=== PATIENT | male | born 1955 | race Caucasian/White ===

== ENCOUNTER 2017-10-04 10:30 | Observation (INO) | payer OTHER, MEDICAID ==
[~2017-10-04] VITALS: Ht 165.1 cm; Wt 54.5 kg
[~2017-10-04 10:30] MED LIST: ALB0.5UD IH; BUDE0.5A11 NEB; FLO0.4C PO; POTA20PA3; PRED10TA PO
[2017-10-04 11:30] LABS: BASOPHILS % (AUTO) 0.1 % (0-1); EOSINOPHILS # (AUTO) 0.4 X10'3 (0-0.9); EOSINOPHILS % (AUTO) 1.7 % (0-6); HEMATOCRIT 39.7 % (42.0-52.0); HEMOGLOBIN 12.9 g/dl (14.0-17.9); LYMPHOCYTES # (AUTO) 3.6 X10'3 (1.1-4.8); LYMPHOCYTES % (AUTO) 16.2 % (21-51); MEAN CORPUSCULAR HEMOGLOBIN 28.9 PG (27.0-31.0); MEAN CORPUSCULAR HGB CONC 32.6 % (33.0-36.5); MEAN CORPUSCULAR VOLUME 88.9 FL (78-98); MEAN PLATELET VOLUME 7.2 FL (7.4-10.4); MONOCYTES % (AUTO) 9.3 % (2-12); NEUTROPHILS % (AUTO) 72.7 % (42-75); PLATELET COUNT 467 X10'3 (140-440); RED BLOOD COUNT 4.46 X10'6 (4.70-6.10); RED CELL DISTRIBUTION WIDTH 17.2 % (11.5-14.5)
[2017-10-04 11:46] LABS: CLARITY,URINE Clear (Clear); COLOR,URINE Yellow (Yellow); GLUCOSE, URINE Negative (Neg); KETONES,URINE Negative (Neg); LEUKOCYTE ESTERASE ,URINE Negative (Neg); NITRITES, URINE Negative (Neg); OCCULT BLOOD,URINE Negative (Neg); PROTEIN,URINE Negative (Neg); UROBILINOGEN,URINE 0.2 E.U/dL (0.2-1.0)
[2017-10-04 11:52] LABS: ALANINE AMINOTRANSFERASE 56 U/L (12-78); ALBUMIN 2.6 G/DL (3.4-5.0); ALBUMIN/GLOBULIN RATIO 0.8 (1.1-1.5); ALKALINE PHOSPHATASE 61 IU/L (46-116); ANION GAP 4 (8-16); ASPARTATE AMINO TRANSFERASE 18 U/L (10-37); BILIRUBIN,TOTAL 0.3 MG/DL (0.1-1.0); BLOOD UREA NITROGEN 24 MG/DL (7-18); BUN/CREATININE RATIO 34.3 (5.4-32.0); CHLORIDE 105 MMOL/L (99-107); GLUCOSE 94 MG/DL (70-104); POTASSIUM 4.2 MMOL/L (3.5-5.1); SODIUM 142 MMOL/L (135-145); TOTAL CARBON DIOXIDE 32.9 MMOL/L (24-32); TOTAL PROTEIN 5.7 G/DL (6.4-8.2); eGFR > 90 ML/MIN
[2017-10-04 11:58] LABS: PLATELET ESTIMATE INCREASED; TOTAL CELLS COUNTED 100
[2017-10-04 11:59] LABS: TARGET CELLS FEW
[2017-10-04 12:02] LABS: UA COLLECTION TYPE URINAL
[2017-10-04] MEDS ORDERED: piperacillin/tazo 3.375gm/50ml 50 ML IV ONE (12:25)
[2017-10-04] MEDS ORDERED: vancomycin/NS 1 GM ADD-VANTAGE 250 ML IV ONE (12:25)
[2017-10-04 12:39] LABS: PARTIAL THROMBOPLASTIN TIME 24 SECONDS (22-32); PROTHROMBIN TIME 9.9 SECONDS (9.0-12.0)
[2017-10-04 13:01] LABS: MAGNESIUM 1.7 MG/DL (1.5-2.4)
[2017-10-04] MEDS ORDERED: magnesium hydroxide 30ml (MOM) UD suspension PO PRN (13:25)
[2017-10-04] MEDS ORDERED: ondansetron/PF 4mg/2ml inj IV PRN (13:25)
[2017-10-04] MEDS ORDERED: acetaminophen 325mg tablet PO PRN (13:25)
[2017-10-04] MEDS ORDERED: mag hydrox/Alum hydrox/simeth 30ml oral suspension PO PRN (13:25)
[2017-10-04] MEDS: normal saline 1000ml 1,000 ML IV SCH (15:19)
[2017-10-04 15:21] VITALS: BP 107/60
[2017-10-04] MEDS ORDERED: PRED20TA PO (16:24)
[2017-10-04] MEDS ORDERED: albuterol 2.5 MG/3 ML nebule NEB PRN (17:20)
[2017-10-04] MEDS: levoFLOXACIN-Levaquin 500mg/D5 100 ML IV SCH (19:38)
[2017-10-04] MEDS: heparin, porcine 5000 units/ml vial SQ SCH (19:38)
[2017-10-04 20:00] VITALS: BP_SYST 103; BP_SYST 98; BP_SYST 99; BP_DIAS 55; BP_DIAS 57; BP_DIAS 62
[2017-10-05] VITALS: BP 101/52
[2017-10-05] MEDS: normal saline 1000ml 1,000 ML IV SCH ×2 (00:25→09:15)
[2017-10-05 06:12] LABS: HEMATOCRIT 36.7 % (42.0-52.0); HEMOGLOBIN 11.7 g/dl (14.0-17.9); MEAN CORPUSCULAR HEMOGLOBIN 28.5 PG (27.0-31.0); MEAN PLATELET VOLUME 7.3 FL (7.4-10.4); PLATELET COUNT 474 X10'3 (140-440); RED BLOOD COUNT 4.12 X10'6 (4.70-6.10); RED CELL DISTRIBUTION WIDTH 16.7 % (11.5-14.5); WHITE BLOOD COUNT 14.6 X10'3 (4.5-11.0)
[2017-10-05 06:24] LABS: ALBUMIN 2.4 G/DL (3.4-5.0); ANION GAP 5 (8-16); BLOOD UREA NITROGEN 21 MG/DL (7-18); CALCIUM 8.1 MG/DL (8.5-10.1); CHLORIDE 106 MMOL/L (99-107); GLUCOSE 94 MG/DL (70-104); POTASSIUM 4.1 MMOL/L (3.5-5.1); SODIUM 144 MMOL/L (135-145); TOTAL CARBON DIOXIDE 32.6 MMOL/L (24-32); eGFR > 90 ML/MIN
[2017-10-05 07:09] VITALS: BP 107/69
[2017-10-05 07:10] LABS: ANISOCYTOSIS 1+; HYPOCHROMASIA 1+; PLATELET ESTIMATE INCREASED; POIKILOCYTOSIS 1+; TOTAL CELLS COUNTED 100
[2017-10-05 07:11] LABS: POLYCHROMASIA FEW; TARGET CELLS FEW
[2017-10-05] MEDS ORDERED: tamsulosin 0.4mg capsule PO SCH (08:00)
[2017-10-05] MEDS: levoFLOXACIN-Levaquin 500mg/D5 100 ML IV SCH (09:06)
[2017-10-05] MEDS: heparin, porcine 5000 units/ml vial SQ SCH (09:07)
[2017-10-05 11:14] VITALS: BP 99/48
== END 2017-10-05 13:20 | disposition home or self-care (01) ==
LOC: ER 10:30 → ED HOLD 13:25 → EDBEDREQ 14:38 → MED 3N 15:12
PROVIDERS: ADMIT Family Medicine; ATTEND Family Medicine
DX: I95.9 Hypotension, unspecified (principal); R42 Dizziness and giddiness; J44.9 Chronic obstructive pulmonary disease, unspecified; D72.828 Other elevated white blood cell count; E11.9 Type 2 diabetes mellitus without complications; F43.10 Post-traumatic stress disorder, unspecified; I11.0 Hypertensive heart disease with heart failure; I50.9 Heart failure, unspecified
CPT/HCPCS: 36415; 71046; 80048; 80053; 81003; 83605; 83735; 83880; 84145; 85025; 85610; 85730; 87040; 87070; 93005; 96361; 96365; 96366; 96367; 96372; 99285; G0378; J1644; J1956; J2543; J3370; J7030

== ENCOUNTER 2019-09-26 15:37 | Inpatient (IN) | payer MEDICAID, OTHER ==
[~2019-09-26] VITALS: Ht 172.7 cm; Wt 67.3 kg
[~2019-09-26 15:37] MED LIST changes: +ALBU8.5H8 INH; +BUDE10.2 INH; +DIGO250T PO; +DILT240C96 PO; -FLO0.4C PO; -POTA20PA3; +POTA20PA40 PO; -PRED10TA PO; +rocuronium bromide 100mg/10ml (10mg/ml) injection IV ONE
--- NOTE | 2019-09-26 15:54 | NUR ---
Spoke LYLY Pressley regarding pt meeting SIRS criteria. Per MEDICAL PARASITOLOGIST, no fluids beyond what EMS administered at this time secondary to CHF history.
[2019-09-26] MEDS ORDERED: piperacillin/tazo 3.375gm/50ml 50 ML IV ONE (15:55)
[2019-09-26] MEDS ORDERED: morphine 4 MG/ML inj SYRINge IV ONE (15:55)
[2019-09-26] MEDS ORDERED: aspirin 81mg tab.chew PO ONE (15:55)
[2019-09-26] MEDS ORDERED: normal saline 1000ML IV soln IVB ONE (16:05)
[2019-09-26] MEDS ORDERED: methylPREDNISolone sod succ 125mg/2ml vial IV ONE (16:05)
[2019-09-26 16:20] LABS: BASOPHILS # (AUTO) 0.1 X10'3 (0-0.2); BASOPHILS % (AUTO) 0.4 % (0-1); EOSINOPHILS # (AUTO) 0.1 X10'3 (0-0.9); EOSINOPHILS % (AUTO) 0.4 % (0-6); HEMATOCRIT 38.3 % (42.0-52.0); HEMOGLOBIN 12.4 g/dl (14.0-17.9); LYMPHOCYTES # (AUTO) 0.4 X10'3 (1.1-4.8); LYMPHOCYTES % (AUTO) 2.5 % (21-51); MEAN CORPUSCULAR HEMOGLOBIN 28.8 PG (27.0-31.0); MEAN CORPUSCULAR HGB CONC 32.4 g/dL (33.0-36.5); MEAN CORPUSCULAR VOLUME 89.1 FL (78-98); MONOCYTES # (AUTO) 1.3 X10'3 (0-0.9); MONOCYTES % (AUTO) 8.6 % (2-12); NEUTROPHILS # (AUTO) 13.6 X10'3 (1.8-7.7); NEUTROPHILS % (AUTO) 88.1 % (42-75); PLATELET COUNT 370 X10'3 (140-440); RED CELL DISTRIBUTION WIDTH 15.5 % (11.5-14.5); WHITE BLOOD COUNT 15.5 X10'3 (4.5-11.0)
[2019-09-26 16:36] LABS: ALANINE AMINOTRANSFERASE 23 U/L (12-78); ALBUMIN 3.5 G/DL (3.4-5.0); ALBUMIN/GLOBULIN RATIO 0.9 (1.1-1.5); ALKALINE PHOSPHATASE 82 IU/L (46-116); ANION GAP 3 (8-16); ASPARTATE AMINO TRANSFERASE 18 U/L (10-37); BILIRUBIN,TOTAL 0.2 MG/DL (0.1-1.0); BLOOD UREA NITROGEN 11 MG/DL (7-18); BUN/CREATININE RATIO 17.2 (5.4-32.0); CALCIUM 8.4 MG/DL (8.5-10.1); CHLORIDE 99 MMOL/L (99-107); CREATININE 0.64 MG/DL (0.60-1.10); GLUCOSE 113 MG/DL (70-104); POTASSIUM 4.1 MMOL/L (3.5-5.1); SODIUM 138 MMOL/L (135-145); TOTAL CARBON DIOXIDE 36.5 MMOL/L (24-32); TOTAL PROTEIN 7.4 G/DL (6.4-8.2); eGFR > 90 ML/MIN
[2019-09-26 16:40] LABS: PARTIAL THROMBOPLASTIN TIME 31 SECONDS (22-32)
[2019-09-26 16:45] LABS: ABG BASE EXCESS 6.2 mmol/L (-2.0-3.0); ABG HCO3 35.1 mmol/L (22.0-26.0); ABG OXYGEN SATURATION 92.9 % (95-98); ABG PCO2 (T) 74.4 mmHg (35.0-45.0); ABG PH (T) 7.292 (7.350-7.450); ABG PO2 (T) 68.1 mmHg (83-108); ALLEN'S TEST POSITIVE; FCOHb 0.8 % (0.5-1.5); FMetHb 0.1 % (0.3-1.12); FO2Hb 92.1 % (94-100); TOTAL HEMOGLOBIN 12.8 G/dl (14.0-17.9)
[2019-09-26 16:46] LABS: ETHANOL < 0.010 GM/DL (0.0-0.010); MAGNESIUM 1.7 MG/DL (1.5-2.4)
[2019-09-26 16:51] LABS: D-DIMER 0.56 MG/L FEU (0-0.50)
[2019-09-26] MEDS ORDERED: oseltamivir phos 75mg capsule PO ONE (18:00)
[2019-09-26 18:25] LABS: ABG BASE EXCESS 7.2 mmol/L (-2.0-3.0); ABG HCO3 36.7 mmol/L (22.0-26.0); ABG OXYGEN SATURATION 95.1 % (95-98); ABG PCO2 (T) 80.1 mmHg (35.0-45.0); ABG PO2 (T) 78.7 mmHg (83-108); ALLEN'S TEST POSITIVE; FCOHb 0.9 % (0.5-1.5); FMetHb 0.2 % (0.3-1.12); FO2Hb 94.1 % (94-100); PATIENT TEMPERATURE 37.3
[2019-09-26] MEDS ORDERED: SILD100T PO (18:46)
[2019-09-26] MEDS ORDERED: TRAZ-251 PO (18:47)
[2019-09-26] MEDS ORDERED: LISI-600 PO (18:48)
[2019-09-26] MEDS ORDERED: METO-384 PO (18:50)
[2019-09-26] MEDS ORDERED: FURO-150 PO (18:51)
[2019-09-26] MEDS ORDERED: IBUP-1985 PO (18:53)
[2019-09-26] MEDS ORDERED: POTA10CA44 PO (18:54)
[2019-09-26] MEDS ORDERED: FLO0.4C PO (18:57)
[2019-09-26 19:16] LABS: ABG BASE EXCESS 6.6 mmol/L (-2.0-3.0); ABG HCO3 35.1 mmol/L (22.0-26.0); ABG OXYGEN SATURATION 92.2 % (95-98); ABG PCO2 (T) 71.2 mmHg (35.0-45.0); ABG PH (T) 7.312 (7.350-7.450); ABG PO2 (T) 65.5 mmHg (83-108); ALLEN'S TEST POSITIVE; FCOHb 0.9 % (0.5-1.5); FMetHb 0.2 % (0.3-1.12); FO2Hb 91.2 % (94-100); PATIENT TEMPERATURE 37.3; TOTAL HEMOGLOBIN 13.1 G/dl (14.0-17.9)
--- NOTE | 2019-09-26 19:21 | NUR ---
MED REC DONE ACCORDING TO MEDICATIONS BROUGHT IN BY PATIENT. NO EXTERNAL MED HISTORY [facility]. PT IS A RELUCTANT HISTORIAN.
[2019-09-26] MEDS ORDERED: iohexol 350MG/ML 100ml bottle IV ONE (19:32)
--- NOTE | 2019-09-26 20:06 | NUR ---
PT OUT TO CT ON 4L NC PER RESPIRATORY. PT RETURNED TO ER ROOM W/ O2 SAT AT 97% ON 4L. PT O2 DECREASED TO 2L AND WILL REMAIN ON NC FOR NOW. PT STATES HE FEELS HE IS BREATHING "FINE". WILL CONTINUE TO MONITOR.
[2019-09-26 22:13] LABS: URINE AMPHETAMINE SCREEN POSITIVE (Neg); URINE BARBITUATE SCREEN NEGATIVE (Neg); URINE BENZODIAZEPINES SCREEN NEGATIVE (Neg); URINE CANNABINOID SCREEN NEGATIVE (Neg); URINE COCAINE SCREEN NEGATIVE (Neg); URINE METHADONE SCREEN NEGATIVE (Neg); URINE OPIATE SCREEN POSITIVE (Neg); URINE PHENCYCLIDINE SCREEN NEGATIVE (Neg)
[2019-09-26] MEDS ORDERED: LORazepam 2 mg/ml vial IV ONE (22:15)
[2019-09-26] MEDS ORDERED: potassium Cl 20 mEq SR tablet PO PRN ×2 (22:30)
[2019-09-26] MEDS ORDERED: magnesium 2GM in 50ml NS 50 ML IV PRN (22:30)
[2019-09-26] MEDS ORDERED: acetaminophen 325mg tablet PO PRN (22:30)
[2019-09-26] MEDS ORDERED: potassium CL 10mEq/100ml bag 100 ML IV PRN ×2 (22:30)
[2019-09-26] MEDS ORDERED: ipratropium/albuterol 3ml nebule NEB PRN (22:30)
[2019-09-26] MEDS ORDERED: mag hydrox/Alum hydrox/simeth 30ml oral suspension PO PRN (22:30)
[2019-09-26] MEDS ORDERED: magnesium hydroxide 30ml (MOM) UD suspension PO PRN (22:30)
[2019-09-26] MEDS ORDERED: magnesium 4gm in 100ml NS 100 ML IV PRN (22:30)
[2019-09-26] MEDS ORDERED: ondansetron/PF 4mg/2ml inj IV PRN (22:30)
[2019-09-26] MEDS ORDERED: traZODone 50mg tablet PO PRN (22:40)
--- NOTE | 2019-09-26 22:42 | NUR ---
PT GIVEN ATIVAN FOR AGITATION R/T PULLING HIS MASK OFF. PT REFUSED MASK AND WAS GIVEN NC UNTIL ATIVAN TOOK EFFECT. PT PULLED NC OFF AND BECAME SOLMNENT WHILE SITTING ON TH EDGE OF BED. PT ASSISTED BACK INTO BED AND MASK PLACED ON FACE. PT PLACED IN GOWN.
[2019-09-26 23:40] VITALS: BP 157/68
--- NOTE | 2019-09-26 23:40 | NUR ---
pt arrived to PCU unit via [facility] from ER, pt transferred from [facility] to hospital bed by the slide board, pt is lethargic at this time, CO2 retainer, pt on bipap FiO2 30 oxygen saturation is 93%, will continue to monitor pt
[2019-09-27] VITALS (26 sets, daily range): BP systolic 82–174; BP diastolic 42–111
--- NOTE | 2019-09-27 00:35 | NUR ---
PAGER ID: [phone] MESSAGE: Gilberto Carter 64M admitted for acute/chronic respiratory failure pt is very agitated and anxious at this time, pulling at his Bipap, i was wondering if i could get an ativan order please. Thank you Riya PORTILLO
[2019-09-27] MEDS ORDERED: LORazepam 2 mg/ml vial IV PRN (00:40)
[2019-09-27] MEDS: normal saline 1000ml 1,000 ML IV SCH ×3 (01:00→17:07)
[2019-09-27] MEDS: digoxin 250mcg (0.25mg) tablet PO SCH ×2 (01:00→07:51)
[2019-09-27] MEDS: heparin, porcine 5000 units/ml vial SQ SCH ×3 (01:02→15:26)
[2019-09-27] MEDS: piperacillin/tazo 3.375gm/50ml 50 ML IV SCH ×3 (01:03→15:26)
--- NOTE | 2019-09-27 02:00 | NUR ---
Paged Dr. Hickey due to concerns of patient's increasing respiratory effort and constantly decreasing O2 sats while still on bipap. ABG obtained and critical results phoned to Dr. Hickey. Dr. Hickey stated he would be by to eval the patient and consult with Aminah SALMERON STORE LOSS PREVENTION MANAGER. Called ICU lithopone charger to notify her of need for transfer and she agreed to come to bedside due to concerns of patient's HR dropping from 100s suddenly to the low 70s. While preparing patient for transfer to ICU room 2009 TAYLER Marin came to bedside to eval the patient and place orders. New 18g IV placed for additional access prior to transfer in patient's L FA. Patient transferred by ICU lithopone charger & primary RN Riya with RT. Patient remained on bipap and transferred on monitor.
[2019-09-27 02:11] LABS: ABG BASE EXCESS 10.9 mmol/L (-2.0-3.0); ABG HCO3 44.6 mmol/L (22.0-26.0); ABG OXYGEN SATURATION 97.4 % (95-98); ABG PCO2 (T) 128.1 mmHg (35.0-45.0); ABG PH (T) 7.159 (7.350-7.450); ABG PO2 (T) 106.4 mmHg (83-108); ALLEN'S TEST POSITIVE; FCOHb 0.5 % (0.5-1.5); FMetHb 0.2 % (0.3-1.12); FO2Hb 96.7 % (94-100); PATIENT TEMPERATURE 36.8; TOTAL HEMOGLOBIN 13.2 G/dl (14.0-17.9)
[2019-09-27] MEDS ORDERED: ipratropium/albuterol 3ml nebule NEB SCH (02:30)
[2019-09-27] MEDS ORDERED: albuterol 2.5 MG/3 ML nebule NEB PRN (02:30)
[2019-09-27] MEDS ORDERED: methylPREDNISolone sod succ 125mg/2ml vial IV ONE (02:30)
--- NOTE | 2019-09-27 02:30 | NUR ---
pt transferred to ICU, pt lethargic at this time and transported on Bipap, beside report given and all problems discussed with Hannah PORTILLO
[2019-09-27] MEDS ORDERED: fentaNYL/PF 50MCG/1 ML 2ML syringe IV PRN (02:35)
[2019-09-27] MEDS ORDERED: FENTANYL-0.9 % NACL/PF 100 ML IV PRN (02:35)
[2019-09-27] MEDS ORDERED: midazolam 100mg in NS 100ml 100 ML IV PRN (02:35)
[2019-09-27] MEDS: ipratropium/albuterol 3ml nebule NEB SCH ×6 (02:55→23:24)
[2019-09-27] MEDS ORDERED: rocuronium 10mg/ml inj IV ONE (03:00)
[2019-09-27] MEDS ORDERED: etomidate 2mg/ml inj. IV ONE (03:00)
[2019-09-27 03:32] LABS: BASOPHILS % (AUTO) 0.3 % (0-1); EOSINOPHILS % (AUTO) 0 % (0-6); HEMATOCRIT 37.4 % (42.0-52.0); LYMPHOCYTES # (AUTO) 0.1 X10'3 (1.1-4.8); LYMPHOCYTES % (AUTO) 1.1 % (21-51); MEAN CORPUSCULAR HEMOGLOBIN 29.1 PG (27.0-31.0); MEAN CORPUSCULAR HGB CONC 32.2 g/dL (33.0-36.5); MEAN CORPUSCULAR VOLUME 90.4 FL (78-98); MEAN PLATELET VOLUME 8.2 FL (7.4-10.4); MONOCYTES # (AUTO) 0.4 X10'3 (0-0.9); NEUTROPHILS # (AUTO) 12.9 X10'3 (1.8-7.7); NEUTROPHILS % (AUTO) 95.6 % (42-75); PLATELET COUNT 352 X10'3 (140-440); RED BLOOD COUNT 4.14 X10'6 (4.70-6.10); RED CELL DISTRIBUTION WIDTH 15.8 % (11.5-14.5); WHITE BLOOD COUNT 13.5 X10'3 (4.5-11.0)
[2019-09-27 03:41] LABS: ABG BASE EXCESS 4.5 mmol/L (-2.0-3.0); ABG OXYGEN SATURATION 98.6 % (95-98); ABG PCO2 (T) 68.9 mmHg (35.0-45.0); ABG PH (T) 7.297 (7.350-7.450); ABG PO2 (T) 116.7 mmHg (83-108); ALLEN'S TEST POSITIVE; FCOHb 0.6 % (0.5-1.5); FMetHb 0.1 % (0.3-1.12); FO2Hb 97.9 % (94-100); PATIENT TEMPERATURE 36.6; PEEP 5 cm H2O; RESPIRATORY RATE 18 b/min; TIDAL VOLUME 400 mL; TOTAL HEMOGLOBIN 12.5 G/dl (14.0-17.9)
[2019-09-27 05:06] LABS: ALANINE AMINOTRANSFERASE 21 U/L (12-78); ALBUMIN 3.1 G/DL (3.4-5.0); ALBUMIN/GLOBULIN RATIO 0.8 (1.1-1.5); ALKALINE PHOSPHATASE 75 IU/L (46-116); ANION GAP 5 (8-16); ASPARTATE AMINO TRANSFERASE 22 U/L (10-37); BILIRUBIN,TOTAL 0.4 MG/DL (0.1-1.0); BLOOD UREA NITROGEN 11 MG/DL (7-18); BUN/CREATININE RATIO 18.3 (5.4-32.0); CALCIUM 7.7 MG/DL (8.5-10.1); CHLORIDE 99 MMOL/L (99-107); CHOL/HDL RATIO 1.9 (0.00-4.99); CHOLESTEROL 181 MG/DL (0-200); GLUCOSE 203 MG/DL (70-104); HDL CHOLESTEROL 95 MG/DL (35-60); LDL CHOLESTEROL 84 MG/DL (50-100); MAGNESIUM 1.6 MG/DL (1.5-2.4); POTASSIUM 4.1 MMOL/L (3.5-5.1); SODIUM 137 MMOL/L (135-145); TOTAL CARBON DIOXIDE 32.9 MMOL/L (24-32); TOTAL PROTEIN 6.9 G/DL (6.4-8.2); TRIGLYCERIDES 20 MG/DL (20-135); eGFR > 90 ML/MIN
[2019-09-27] MEDS: oseltamivir phos 75mg capsule PO SCH ×2 (07:50→19:37)
[2019-09-27] MEDS: methylPREDNISolone sod succ 125mg/2ml vial IV SCH ×3 (07:51→19:37)
[2019-09-27] MEDS: tamsulosin 0.4mg capsule PO SCH (08:00)
[2019-09-27] MEDS: metoprolol succinate 25mg (24-HOUR) SR. Tablet PO SCH (08:00)
[2019-09-27] MEDS ORDERED: methylPREDNISolone sod succ 125mg/2ml vial IV SCH (08:00)
[2019-09-27] MEDS: lisinopril 2.5mg tablet PO SCH (08:00)
[2019-09-27] MEDS ORDERED: dexmedetomidin/NS 400mcg/100ml 100 ML IV SCH (10:10)
[2019-09-27 12:09] LABS: HEMOGLOBIN A1C 6.3 % (4.5-6.2)
--- NOTE | 2019-09-27 12:12 | NUR ---
Initial: Pt intubated admit w/ respiratory failure, COPD Exacerbation, PNA secondary to flu and possible aspiration per MD. Pt hx daily meth use and T2DM last A1C 2018 below 7. MIGUELANGEL d/w RN regarding new A1C this admit. TF recs below in case prolonged intubation. No BM yet. Will continue to monitor. Rec: 1. IF OGTF; Vital AF at 70ml/hr goal 2. IF TF; water flush 100ml Q6 3. IF TF; PALB Q /; daily wts 4. advance diet per BI ANALYST recs to carb controlled/heart healthy 5. DM ed IF new A1C at least 7.0; pending new A1C Addendum: 09/27/19 at [address] Amended: Links added.
--- NOTE | 2019-09-27 12:18 | NUR ---
PT TRIED TO EXTUBATE HIMSELF... DID NOT PULL ET TUBE OUT BUT DISCONNECTED VENT FROM ET TUBE... DR. MARTINEZ GAVE VERBAL ORDER TO EXTUBATE. B Addendum: 09/27/19 at 1219 by Kacy Higgins RT Amended: Links added.
--- NOTE | 2019-09-27 18:17 | NUR ---
Problems reprioritized. Patient report given to Hannah, questions answered & plan of care reviewed with .
[2019-09-27] MEDS: lactobacillus rhamnosus 10,000 MMU CELLS/CAPSULE PO SCH (19:37)
[2019-09-28] VITALS (15 sets, daily range): BP systolic 105–164; BP diastolic 53–76
[2019-09-28] MEDS: piperacillin/tazo 3.375gm/50ml 50 ML IV SCH ×3 (00:20→15:49)
[2019-09-28] MEDS: methylPREDNISolone sod succ 125mg/2ml vial IV SCH (00:20)
[2019-09-28] MEDS: heparin, porcine 5000 units/ml vial SQ SCH ×3 (00:20→15:19)
[2019-09-28] MEDS: ipratropium/albuterol 3ml nebule NEB SCH ×7 (02:31→23:44)
[2019-09-28] MEDS: normal saline 1000ml 1,000 ML IV SCH (04:51)
[2019-09-28 05:31] LABS: BASOPHILS % (AUTO) 0 % (0-1); EOSINOPHILS % (AUTO) 0 % (0-6); HEMATOCRIT 36.6 % (42.0-52.0); HEMOGLOBIN 11.6 g/dl (14.0-17.9); LYMPHOCYTES # (AUTO) 0.3 X10'3 (1.1-4.8); LYMPHOCYTES % (AUTO) 2.2 % (21-51); MEAN CORPUSCULAR HEMOGLOBIN 28.8 PG (27.0-31.0); MEAN CORPUSCULAR HGB CONC 31.8 g/dL (33.0-36.5); MEAN CORPUSCULAR VOLUME 90.6 FL (78-98); MEAN PLATELET VOLUME 7.4 FL (7.4-10.4); MONOCYTES # (AUTO) 0.8 X10'3 (0-0.9); MONOCYTES % (AUTO) 5.5 % (2-12); NEUTROPHILS # (AUTO) 12.9 X10'3 (1.8-7.7); NEUTROPHILS % (AUTO) 92.3 % (42-75); PLATELET COUNT 371 X10'3 (140-440); RED BLOOD COUNT 4.03 X10'6 (4.70-6.10); RED CELL DISTRIBUTION WIDTH 15.6 % (11.5-14.5)
[2019-09-28 05:43] LABS: ALANINE AMINOTRANSFERASE 25 U/L (12-78); ALBUMIN 2.7 G/DL (3.4-5.0); ALBUMIN/GLOBULIN RATIO 0.8 (1.1-1.5); ALKALINE PHOSPHATASE 63 IU/L (46-116); ASPARTATE AMINO TRANSFERASE 29 U/L (10-37); BILIRUBIN,TOTAL 0.2 MG/DL (0.1-1.0); BLOOD UREA NITROGEN 13 MG/DL (7-18); BUN/CREATININE RATIO 15.5 (5.4-32.0); CREATININE 0.84 MG/DL (0.60-1.10); GLUCOSE 133 MG/DL (70-104); POTASSIUM 4.3 MMOL/L (3.5-5.1); SODIUM 142 MMOL/L (135-145); TOTAL PROTEIN 6.3 G/DL (6.4-8.2); eGFR > 90 ML/MIN
[2019-09-28 05:54] LABS: ANION GAP 2 (8-16); CHLORIDE 102 MMOL/L (99-107); TOTAL CARBON DIOXIDE 38.3 MMOL/L (24-32)
[2019-09-28] MEDS: mineral oil/petrolatum ophthal oint EACHEYE SCH ×3 (08:00→19:52)
[2019-09-28] MEDS: lisinopril 2.5mg tablet PO SCH (09:27)
[2019-09-28] MEDS: oseltamivir phos 75mg capsule PO SCH ×2 (09:27→20:14)
[2019-09-28] MEDS: metoprolol succinate 25mg (24-HOUR) SR. Tablet PO SCH (09:27)
[2019-09-28] MEDS: lactobacillus rhamnosus 10,000 MMU CELLS/CAPSULE PO SCH ×2 (09:27→20:05)
[2019-09-28] MEDS: digoxin 250mcg (0.25mg) tablet PO SCH (09:28)
--- NOTE | 2019-09-28 12:02 | NUR ---
Patient in room CICU 2009. I have received report from Tigist PORTILLO and had the opportunity to ask questions. Awaiting pts arrival to PCU.
[2019-09-28] MEDS: methylPREDNISolone sod succ/PF 40mg inj. IV SCH ×2 (14:33→20:05)
[2019-09-28] MEDS: tamsulosin 0.4mg capsule PO SCH (15:19)
--- NOTE | 2019-09-28 18:40 | NUR ---
Problems reprioritized. Patient report given, questions answered & plan of care reviewed with Annabelle PORTILLO.
--- NOTE | 2019-09-28 20:00 | NUR ---
VISITOR AT THE BEDSIDE PT TOOK HIS HS MEDS. TEACHING DONE ON PLAN OF CARE AND WHAT HE CAN DO TO HELP HIMSELF AND ON DX DONE.
--- NOTE | 2019-09-28 21:15 | NUR ---
RESTING EYES CLOSED WITHOUT CHANGES.
--- NOTE | 2019-09-28 21:35 | NUR ---
PT RESTING EYES CLOSED WITHOUT CHANGES AT THIS TIME. PT REMAINS ON ISOLATION FOR FLU A.
--- NOTE | 2019-09-28 23:15 | NUR ---
RESTING EYES CLOSED WITHOUT CHANGES
--- NOTE | 2019-09-28 23:18 | NUR ---
PT ON LEFT SIDE APPEARS TO BE RESTING COMFORTABLY.
--- NOTE | 2019-09-29 00:15 | NUR ---
PT AWAKENED AND IV ABX HUNG AND INFUSING. AWOKE BRIEFLY FOR HEPARIN INJECTION THEN DOZED BACK OFF.
[2019-09-29] MEDS: piperacillin/tazo 3.375gm/50ml 50 ML IV SCH ×3 (00:21→16:10)
[2019-09-29] MEDS: heparin, porcine 5000 units/ml vial SQ SCH ×3 (00:22→16:09)
[2019-09-29] MEDS: mineral oil/petrolatum ophthal oint EACHEYE SCH (01:26)
[2019-09-29] MEDS: methylPREDNISolone sod succ/PF 40mg inj. IV SCH ×4 (01:37→19:36)
--- NOTE | 2019-09-29 01:40 | NUR ---
resting eyes closed without changes at this time.
[2019-09-29] MEDS: ipratropium/albuterol 3ml nebule NEB SCH ×4 (02:51→14:26)
[2019-09-29 03:00] VITALS: BP 129/71
--- NOTE | 2019-09-29 03:30 | NUR ---
RESTING EYES CLOSED WITHOUT CHANGES.
[2019-09-29 04:55] LABS: BASOPHILS % (AUTO) 0.1 % (0-1); EOSINOPHILS % (AUTO) 0 % (0-6); HEMATOCRIT 35.4 % (42.0-52.0); HEMOGLOBIN 11.4 g/dl (14.0-17.9); LYMPHOCYTES # (AUTO) 0.3 X10'3 (1.1-4.8); LYMPHOCYTES % (AUTO) 2.6 % (21-51); MEAN CORPUSCULAR HEMOGLOBIN 28.9 PG (27.0-31.0); MEAN CORPUSCULAR HGB CONC 32.2 g/dL (33.0-36.5); MEAN CORPUSCULAR VOLUME 89.9 FL (78-98); MEAN PLATELET VOLUME 7.1 FL (7.4-10.4); MONOCYTES # (AUTO) 0.4 X10'3 (0-0.9); MONOCYTES % (AUTO) 3.6 % (2-12); NEUTROPHILS # (AUTO) 10.9 X10'3 (1.8-7.7); NEUTROPHILS % (AUTO) 93.7 % (42-75); PLATELET COUNT 380 X10'3 (140-440); RED BLOOD COUNT 3.94 X10'6 (4.70-6.10); RED CELL DISTRIBUTION WIDTH 15.2 % (11.5-14.5); WHITE BLOOD COUNT 11.6 X10'3 (4.5-11.0)
[2019-09-29 05:12] LABS: ALANINE AMINOTRANSFERASE 24 U/L (12-78); ALBUMIN 2.5 G/DL (3.4-5.0); ALBUMIN/GLOBULIN RATIO 0.7 (1.1-1.5); ALKALINE PHOSPHATASE 57 IU/L (46-116); ANION GAP 1 (8-16); ASPARTATE AMINO TRANSFERASE 25 U/L (10-37); BILIRUBIN,TOTAL 0.2 MG/DL (0.1-1.0); BLOOD UREA NITROGEN 16 MG/DL (7-18); BUN/CREATININE RATIO 21.3 (5.4-32.0); CALCIUM 8.2 MG/DL (8.5-10.1); CHLORIDE 101 MMOL/L (99-107); CREATININE 0.75 MG/DL (0.60-1.10); GLUCOSE 135 MG/DL (70-104); MAGNESIUM 1.8 MG/DL (1.5-2.4); POTASSIUM 4.2 MMOL/L (3.5-5.1); SODIUM 141 MMOL/L (135-145); TOTAL CARBON DIOXIDE 39.4 MMOL/L (24-32); eGFR > 90 ML/MIN
[2019-09-29 06:00] VITALS: BP 107/60
--- NOTE | 2019-09-29 06:30 | NUR ---
Patient in room PCU 3019. I have received report from LINDSEY PARRY and had the opportunity to ask questions and assume patient care.
--- NOTE | 2019-09-29 06:33 | NUR ---
Problems reprioritized. Patient report given, questions answered & plan of care reviewed with EL PORTILLO. Addendum: 09/29/19 at 0634 by Annabelle Jose RN Amended: Links added.
[2019-09-29] MEDS: lactobacillus rhamnosus 10,000 MMU CELLS/CAPSULE PO SCH ×2 (08:00→19:36)
[2019-09-29] MEDS ORDERED: oseltamivir phos 75mg capsule PO SCH (08:00)
[2019-09-29] MEDS: tamsulosin 0.4mg capsule PO SCH (08:00)
[2019-09-29] MEDS: digoxin 250mcg (0.25mg) tablet PO SCH (08:01)
[2019-09-29] MEDS: oseltamivir phos 75mg capsule PO SCH ×2 (08:01→19:36)
[2019-09-29] MEDS: lisinopril 2.5mg tablet PO SCH (08:02)
[2019-09-29] MEDS: metoprolol succinate 25mg (24-HOUR) SR. Tablet PO SCH (08:02)
[2019-09-29] MEDS ORDERED: FLU VACC QS2019-20 36MOS UP/PF 60 MCG/0.5 ML SYRINGE IMVAC ONE (10:00)
[2019-09-29] MEDS ORDERED: pneumococcal 23-VAL P-sac vacc 25 mcg/0.5ml vial IMVAC ONE (10:00)
--- NOTE | 2019-09-29 10:48 | NUR ---
SPOKE TO SILVESTRE, PHARMACIST REGARDING GIVING THE FLU AND PNA VACCINE WITH POSITIVE INFUENZA A DX. STATES, SHOULD NOT GIVE, I WILL SCHEDULE THEM 4 DAYS OUT".
[2019-09-29 11:00] VITALS: BP 145/73
[2019-09-29 15:00] VITALS: BP 115/75
[2019-09-29] MEDS ORDERED: TAM75C PO (16:40)
--- NOTE | 2019-09-29 18:17 | NUR ---
Problems reprioritized. Patient report given, questions answered & plan of care reviewed with .
[2019-09-29 19:00] VITALS: BP 143/71
--- NOTE | 2019-09-29 20:42 | NUR ---
Patient ride arrived at 194, 2 IVs taken out of left and right FA, tele box removed, patient sent with belongings down with Lita Cárdenas in friends personal vehicle. Discharge instructions reviewed, prescription sent with patient, patient treated with Tamiflu and 2000 meds before he left.
[2019-10-03] MEDS ORDERED: pneumococcal 23-VAL P-sac vacc 25 mcg/0.5ml vial IMVAC ONE (10:50)
[2019-10-03] MEDS ORDERED: FLU VACC QS2019-20 36MOS UP/PF 60 MCG/0.5 ML SYRINGE IMVAC ONE (10:50)
== END 2019-09-29 19:45 | disposition home or self-care (01) | DRG 133 ==
LOC: ER 15:37 → ED HOLD 22:46 → PCU 3S 23:35 → CICU 2S 09-27 02:30 → PCU 3S 09-28 13:23
PROVIDERS: ADMIT Family Medicine; ATTEND Internal Medicine Critical Care Medicine
PROC: 5A09357 Assistance with Respiratory Ventilation, Less than 24 Consecutive Hours, Continuous Positive Airway Pressure (ICD-10-PCS; principal; 2019-09-26)
PROC: B32T1ZZ Computerized Tomography (CT Scan) of Left Pulmonary Artery using Low Osmolar Contrast (ICD-10-PCS; 2019-09-26)
PROC: B3201ZZ Computerized Tomography (CT Scan) of Thoracic Aorta using Low Osmolar Contrast (ICD-10-PCS; 2019-09-26)
PROC: B32S1ZZ Computerized Tomography (CT Scan) of Right Pulmonary Artery using Low Osmolar Contrast (ICD-10-PCS; 2019-09-26)
PROC: 5A1935Z Respiratory Ventilation, Less than 24 Consecutive Hours (ICD-10-PCS; 2019-09-27)
PROC: 0BH17EZ Insertion of Endotracheal Airway into Trachea, Via Natural or Artificial Opening (ICD-10-PCS; 2019-09-27)
DX: J96.22 Acute and chronic respiratory failure with hypercapnia (principal); J10.00 Influenza due to other identified influenza virus with unspecified type of pneumonia; I11.0 Hypertensive heart disease with heart failure; I50.9 Heart failure, unspecified; E87.2 Acidosis; E11.9 Type 2 diabetes mellitus without complications; F15.90 Other stimulant use, unspecified, uncomplicated; J44.0 Chronic obstructive pulmonary disease with (acute) lower respiratory infection; J44.1 Chronic obstructive pulmonary disease with (acute) exacerbation; Z79.899 Other long term (current) drug therapy
CPT/HCPCS: 36415; 36600; 71045; 71275; 80053; 80061; 80305; 80320; 82803; 82948; 83036; 83605; 83735; 83880; 84145; 84443; 84484; 85018; 85025; 85379; 85610; 85730; 87040; 87070; 87081; 87502; 87503; 92508; 92616; 93005; 93306; 94002; 94640; 94660; 94760; 96365; 96375; 97110; 97116; 97161; 97530; 99291; G0378; J1644; J2060; J2250; J2270; J2543; J2920; J2930; J3010; J7030; Q9967

== ENCOUNTER 2019-09-30 05:58 | Emergency (ER) | payer MEDICAID ==
[~2019-09-30] VITALS: Ht 172.7 cm; Wt 63.6 kg
[~2019-09-30 05:58] MED LIST changes: +FLO0.4C PO; +FURO-150 PO; +LISI-600 PO; +METO-384 PO; +POTA10CA44 PO; -POTA20PA40 PO; +SILD100T PO; +TAM75C PO; +TRAZ-251 PO; -rocuronium bromide 100mg/10ml (10mg/ml) injection IV ONE
[2019-09-30 06:42] LABS: BASOPHILS % (AUTO) 0.1 % (0-1); EOSINOPHILS % (AUTO) 0 % (0-6); HEMATOCRIT 36.1 % (42.0-52.0); HEMOGLOBIN 11.9 g/dl (14.0-17.9); LYMPHOCYTES # (AUTO) 0.8 X10'3 (1.1-4.8); MEAN CORPUSCULAR HEMOGLOBIN 29.3 PG (27.0-31.0); MEAN CORPUSCULAR HGB CONC 32.8 g/dL (33.0-36.5); MEAN CORPUSCULAR VOLUME 89.1 FL (78-98); MEAN PLATELET VOLUME 6.7 FL (7.4-10.4); MONOCYTES # (AUTO) 1.2 X10'3 (0-0.9); MONOCYTES % (AUTO) 13.9 % (2-12); NEUTROPHILS # (AUTO) 6.4 X10'3 (1.8-7.7); PLATELET COUNT 406 X10'3 (140-440); RED BLOOD COUNT 4.05 X10'6 (4.70-6.10); RED CELL DISTRIBUTION WIDTH 15.3 % (11.5-14.5); WHITE BLOOD COUNT 8.4 X10'3 (4.5-11.0)
[2019-09-30 07:01] LABS: ALANINE AMINOTRANSFERASE 108 U/L (12-78); ALBUMIN 2.9 G/DL (3.4-5.0); ALBUMIN/GLOBULIN RATIO 0.8 (1.1-1.5); ALKALINE PHOSPHATASE 62 IU/L (46-116); ANION GAP 1 (8-16); ASPARTATE AMINO TRANSFERASE 80 U/L (10-37); BILIRUBIN,TOTAL 0.2 MG/DL (0.1-1.0); BLOOD UREA NITROGEN 21 MG/DL (7-18); BUN/CREATININE RATIO 29.6 (5.4-32.0); CALCIUM 8.4 MG/DL (8.5-10.1); CHLORIDE 100 MMOL/L (99-107); CREATININE 0.71 MG/DL (0.60-1.10); GLUCOSE 95 MG/DL (70-104); SODIUM 145 MMOL/L (135-145); TOTAL PROTEIN 6.5 G/DL (6.4-8.2); eGFR > 90 ML/MIN
[2019-09-30 07:02] LABS: TOTAL CARBON DIOXIDE 43.7 MMOL/L (24-32)
[2019-09-30 07:35] VITALS: BP 154/84
== END 2019-09-30 09:02 | disposition home or self-care (01) ==
LOC: ER 05:59
DX: J44.9 Chronic obstructive pulmonary disease, unspecified (principal); I50.9 Heart failure, unspecified; I11.0 Hypertensive heart disease with heart failure; E11.9 Type 2 diabetes mellitus without complications; Z87.891 Personal history of nicotine dependence; Z60.2 Problems related to living alone; Z79.899 Other long term (current) drug therapy
CPT/HCPCS: 36415; 71046; 80053; 83605; 85025; 87040; 99284